=== PATIENT | male | born 2000 | race Asian ===

== ENCOUNTER 2023-07-11 16:29 | Emergency (ER) | payer MEDICAID, OTHER ==
[~2023-07-11] VITALS: Ht 154.9 cm; Wt 68.0 kg
[2023-07-11 21:02] VITALS: BP 123/82; PULSE 96; RESP 16; TEMP 99.5
[2023-07-11 21:49] VITALS: O2SAT 99
[2023-07-11] MEDS: ACETAMINOPHEN 325 MG TAB PO ONE (23:49)
== END 2023-07-12 | disposition home or self-care (01) ==
LOC: ER 16:29 → EDBD 16:29 → ER 07-12
DX: S29.012A Strain of muscle and tendon of back wall of thorax, initial encounter (principal); V53.6XXA Passenger in pick-up truck or van injured in collision with car, pick-up truck or van in traffic accident, initial encounter; Y93.89 Activity, other specified; Y92.89 Other specified places as the place of occurrence of the external cause; Y99.8 Other external cause status
CPT/HCPCS: 70450; 72070